=== PATIENT | female | born 1990 | race Two or more races ===

== ENCOUNTER 2016-07-16 03:51 | Emergency (ER) | payer SELFPAY ==
[~2016-07-16] VITALS: Ht 170.2 cm; Wt 81.6 kg
--- NOTE | 2016-07-16 04:03 | NUR ---
PT A/OX4 BREATHING EFFORTLESSLY ON ROOM AIR, PT STATES SHE HAD A CLUSTER HEADACHE TODAY, PT STATES SHE TOOK HER MEDS AND THEY DID NOT HELP, PT FRIEND IS AT BEDSIDE, PT ON O2, ON MONITOR AND IN GOWN IN ROOM WILL CONTINUE TO MONITOR.
[2016-07-16 04:32] VITALS: BP 126/70
== END 2016-07-16 04:32 | disposition home or self-care (01) ==
LOC: ER 03:58
DX: G44.009 Cluster headache syndrome, unspecified, not intractable (principal)
CPT/HCPCS: 99283; A4606; Z7610